=== PATIENT | male | born 1975 | race Asian ===

== ENCOUNTER 2025-08-13 19:29 | Emergency (ER) | payer SELFPAY ==
[~2025-08-13] VITALS: Ht 167.6 cm; Wt 86.4 kg
[~2025-08-13 19:29] MED LIST: NO HOME MEDS
--- NOTE | 2025-08-13 20:23 | RADIOLOGY REPORT ---
CLINICAL INDICATION: ARM PAIN TECHNIQUE: 2 radiographic views of the left forearm were obtained. Comparison: None FINDINGS/IMPRESSION: There is no evidence of acute fracture or dislocation. The visualized joint space is well maintained. The alignment is anatomical. There is no radiopaque foreign body.
[2025-08-13] MEDS ORDERED: DOXY-1 PO (20:45)
--- NOTE | 2025-08-13 20:46 | Physician Documentation ---
History of Present Illness ~ Chief Complaint: Laceration Stated Complaint: ARM LAC Time Seen by MD: 20:21 Primary Medical Doctor: NONE Source: patient Mode of Arrival: POV Exam Limitations: no limitations HPI 50-year-old male fixing a fence and moving a T post around in a came back and lacerated his left forearm. Patient is not up-to-date with tetanus but is refusing booster Tetanus Within 5 Years: No Medication Reconciliation Allergies: Coded Allergies: No Known Allergies (Unverified , 11/09/15) Scheduled Doxycycline Hyclate (Doxycycline Hyclate), 1 CAP PO Q12H Miscellaneous Medications Home Med List (No Home Medications), (Reported) Past Medical History Past Medical History: No Pertinent History Past Surgical History: no surgical history Patient History: Patient reports no known family medical history. Alcohol Use: Occasionally Drug Use: marijuana Review of Systems All Other Systems at this time: Reviewed and Negative Integumentary: Reports: see HPI Physical Exam Vital Signs: RN Vital Signs have been reviewed: Yes, Temperature: 98.3, Heart Rate: 98, Respiratory Rate: 16, BP: 128/81, Pulse Oximetry: 97, Weight: 86.360 Oxygen Flow Rate: 0 Physical Exam General: Alert, no apparent distress. HEENT: moist mucous membranes. Neck: Full range of motion. Respiratory: No respiratory distress speaking in full sentences Chest: No accessory muscle use. Cardiovascular: Appears well perfused Neurologic: Oriented x4. Psychiatric: Normal mood and affect. Skin: Large partial-thickness laceration to the left the proximal forearm adipose exposed irregularly-shaped 8 cm CMS intact distally Procedures Laceration/Wound Repair Laceration : Location: 8 Anesthesia: Lidocaine Volume Anesthetic (mls): 8 Prep: betadine, irrigated by physician, scrubbed Irrigated w/ Saline (mls): 100 Undermining: none Margins: vermilion border aligned Foreign Body: not identified Repaired: skin Wound Repaired With: sutures Suture Size/Type: 4-0, ethilon Number of Superficial Sutures: 12 Layer Closure?: No Tolerated Procedure Well?: yes, no complications Procedure Note Ethilon sutures 1 is clear while 11 are black Progress Results/Orders Results/Orders Orders - ANY RIVERA NP Laceration/I&D Tray Set Up (08/13/25 20:46) Vital Signs 08/13/25 19:45 Temp 98.3 Pulse 98 Resp 16 B/P (MAP) 128/81 Pulse Ox 97 O2 Flow Rate 0 Medical Decision Making Findings Partial-thickness laceration to left forearm x-ray to evaluate for fracture as it was due to an impact with a T post. Patient is not up-to-date with tetanus and is refusing vaccine at the time. CMS intact distally to evaluate for nerve or ligament damage. Laceration repaired patient discharged to follow up for suture removal in 14 days Differential Dx:Considerations: Include: Laceration, Fracture, Neurovascular injury Departure Time of Disposition: 21:15 Disposition: 01 HOME / SELF CARE / HOMELESS Impression: Primary Impression: Laceration Condition: Stable Discharge Instructions: Laceration Care, Adult, [id number] Additional Instructions: For may shower in 24 hours. Keep laceration clean and dry. Uncover and leave open to air after 24 hours. Have sutures evaluated and/or removed in 14 days. Take antibiotics as prescribed Referrals: NO PRIMARY CARE PROVIDER (PCP) Prescriptions Doxycycline Hyclate (Doxycycline Hyclate) 100 Mg Capsule 1 CAP PO Q12H for 7 Days, #14 CAP Prov: ANY RIVERA NP 08/13/25 Education Educated: Patient Educated regarding: diagnosis, treatment, need for follow up Signature Scribe Signature: No scribe Attestation: The note accurately reflects work and decisions made by me.Any Rivera - LANE 08/13/25 20:46 ANY RIVERA NP Aug 13, 2025 20:46
[2025-08-13 21:30] VITALS: BP 126/78; PULSE 98; RESP 18; TEMP 98.6; O2SAT 99
== END 2025-08-13 21:31 | disposition home or self-care (01) ==
LOC: ER 19:29
DX: S51.812A Laceration without foreign body of left forearm, initial encounter (principal); F12.90 Cannabis use, unspecified, uncomplicated; Z72.89 Other problems related to lifestyle; X58.XXXA Exposure to other specified factors, initial encounter; Y93.89 Activity, other specified; Y92.89 Other specified places as the place of occurrence of the external cause; Y99.8 Other external cause status
CPT/HCPCS: 12004; 73090; 99283; A6222; A6449